=== PATIENT | male | born 1995 | race Caucasian/White ===

== ENCOUNTER 2021-09-09 09:38 | Outpatient (REF) | payer BC, SELFPAY ==
[2021-09-09 11:07] LABS: MANUAL DIFF FLAG NO
[2021-09-09 11:10] LABS: Basophils Absolute Auto 0.1 X10*3/uL (0.0-0.2); Basophils Percent Auto 1.3 % (0-2); Eosinophils Absolute Auto 0.1 X10*3/uL (0.0-0.4); Eosinophils Percent Auto 1.9 % (0-4); Hematocrit 44.2 % (42.0-52.0); Hemoglobin 15.4 g/dl (14.0-18.0); Imm Gran Abs Auto 0.01 X10*3/uL (0.00-0.03); Imm Gran Pct Auto 0.2 % (0.0-0.4); Lymphocytes Absolute Auto 2.4 X10*3/uL (1.2-4.9); Lymphocytes Percent Auto 46.4 % (20-40); Mean Corpuscular HGB Conc 34.8 g/dl (31.0-36.0); Mean Corpuscular Hemoglobin 29.1 pg (27.0-33.0); Mean Corpuscular Volume 83.6 fL (80.0-98.0); Mean Platelet Volume 10.9 fL (9.4-12.4); Monocytes Absolute Auto 0.4 X10*3/uL (0.1-1.2); Monocytes Percent Auto 7.7 % (2-11); Neutrophils Absolute Auto 2.2 x10*3/uL (2.0-8.3); Neutrophils Percent Auto 42.5 % (45-73); Platelet Count 271 X10*3/uL (160-400); Red Blood Count 5.29 X10*6/uL (4.60-5.80); Red Cell Distribution Width 11.9 % (11.0-16.0); White Blood Count 5.2 X10*3/uL (4.8-10.8)
[2021-09-09 11:26] LABS: Estimated Average Glucose 103 mg/dL; Hemoglobin A1c % 5.2 %
[2021-09-09 11:33] LABS: Alanine Aminotransferase 39 U/L (0-40); Albumin Level 4.6 g/dL (3.5-5.0); Alkaline Phosphatase 65 U/L (39-117); Anion Gap 12 (12-20); Aspartate Amino Transferase 39 U/L (5-37); Bilirubin Total 1.1 mg/dL (0.0-1.0); Blood Urea Nitrogen 15 mg/dL (9-16); Calcium 10.2 mg/dL (8.4-10.2); Carbon Dioxide 26 mmol/L (22-29); Chloride 106 mmol/L (96-108); Estimated Glomerular Filt Rate > 60; Glucose Random 96 mg/dL (60-115); Potassium 4.4 mmol/L (3.3-5.1); Sodium 140 mmol/L (135-145); Total Protein 7.6 g/dL (6.5-8.0)
[2021-09-09 11:55] LABS: Thyroid Stimulating Hormone 2.99 uIU/mL (0.32-4.0)
[2021-09-09 12:21] LABS: Cortisol Random 17.6 ug/dL
== END 2021-09-09 09:39 | disposition home or self-care (01) ==
LOC: HO.MANLDS 09:38
PROVIDERS: PCP Physician Assistant; Visit Provider Physician Assistant
DX: R42 Dizziness and giddiness (principal); I10 Essential (primary) hypertension
CPT/HCPCS: 36415; 80053; 82088; 82533; 83036; 84439; 84443; 85025

== ENCOUNTER 2025-03-01 09:52 | Outpatient (REF) | payer OTHER, SELFPAY ==
--- OUTSIDE RECORDS SUMMARY | 2025-03-01 10:07 | XMS_ITS | Continuity of Care Document ---
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 MEET 2 OUT OF 3 ELEMENTS: PROBLEMS, DATA OR RISK ELEMENT 1: PROBLEMS ADDRESSED 1 OR MORE CHRONIC ILLNESS WITH EXACERBATION OR 2 OR MORE STABLE CHRONIC ILLNESSES OR 1 UNDIAGNOSED NEW PROBLEM OR 1 ACUTE ILLNESS W/SYMPTOMS OR 1 ACUTE COMPLICATED INJURY ELEMENT 2: DATA MUST MEET 1 OF 3 CATEGORIES CATEGORY 1: REVIEW OF PRIOR EXTERNAL NOTES, REVIEW OF RESULTS, ORDERING OF EACH TEST, ASSESSMENT REQUIRING INDEPENDENT HISTORIAN OR CATEGORY 2: INDEPENDENT INTERPRETATION OF TESTS BY ANOTHER PHYSICIAN OR SPECIALIST OR CATEGORY 3: DISCUSSION OF MGT OR TEST INTERPRETATION W/EXTERNAL PHYSICIAN OR SPECIALIST ELEMENT 3: RISK RISK OF COMPLICATIONS AND/OR MORBIDITY OR MORTALITY OF PATIENT MANAGEMENT PROVIDER MUST THOROUGHLY DOCUMENT EACH ELEMENT THAT IS COVERED [email or web address] Not available 03/01/2025 09:39:43 Plan of Treatment Reminders Order Date Submit Date Provider Last Modified By Organization Details Last Modified Time Details Appointments FOLLOW UP 15 2024 09:15A M DR NUNEZ Not available Not available Not available Lab CMP, serum or plasma 2024 025 [facility], [address] [place] [address], [place], [address], 03/01/2025 09:49:37 CBC w/ auto diff 2024 025 [facility], [address] [place] [address], [place], [address], 03/01/2025 09:49:37 lipid panel, serum 2024 [facility], [address], [place], [address], 03/01/2025 09:49:37 Referral None recorded. Procedures None recorded. Surgeries None recorded. Imaging None recorded. Medication Orders diclofena c sodium 75 mg tablet,de layed release 2024 [id number], [address] [place] [address], [id number], 03/01/2025 09:50:50 Patient TargetsNo targets recorded. Patient InstructionsNo instructions recorded. Reason for Referral None Reported. Problems Name Problem SNOMED Code Status Onset Date Resolution Date Notes Provider Name and Address Organization Details Recorded Time Hypertensi ve disorder 16465188 Active 2021 Alcides Nunez DO [address] [place] [address], [phone], [facility] 2 11:48:08 Migraine 02235773 Active 2022 Alcides Nunez DO [address] [place] [address], [phone], [facility] 3 09:47:21 Acute sinusitis 55030849 Active 2023 LETY WAKEFIELD [address] [place] [address], [phone], [facility] 4 12:19:48 Seasonal affective disorder 066732838 Active 2023 Alcides Nunez DO [address] [place] [address], [phone], [facility] 4 09:16:21 Tendinitis of hip 057169058 Active 2024 Alcides Nunez DO [address] [place] [address], [phone], [facility] 5 09:49:43 Problem Notes None recorded. Medical Equipment None Reported. Allergies No known drug allergies Medications Name Sig Start Date Stop Date Status Note LastModified by Organization Details LastModified Time azithromyci n 250 mg tablet TAKE 2 TABLETS (500 MG) BY ORAL ROUTE ONCE DAILY FOR 1 DAY THEN 1 TABLET (250 MG) BY ORAL ROUTE ONCE DAILY FOR 4 DAYS 01/17 completed Not Available Not Available Not Available sumatriptan 50 mg tablet TAKE ONE TABLET WHEN EXPERIENC ING MIGRAINE; MAY REPEAT DOSE IN 1-2 HOURS 08/26 completed Not Available Not Available Not Available amlodipine 2.5 mg tablet TAKE 1 TABLET BY MOUTH EVERY DAY 07/22 completed Not Available Not Available Not Available amlodipine 5 mg tablet TAKE 1 TABLET BY MOUTH EVERY DAY active Not Available Not Available No t Available amitriptyli ne 25 mg tablet 08/26 completed Not Available Not Available Not Available rizatriptan 10 mg disintegrat ing tablet TAKE 1 TABLET BY MOUTH NEEDED FOR MIGRAINE. MAY REPEAT IN 2 HOURS IF NEEDED 01/17 completed Not Available Not Available Not Available diclofenac sodium 75 mg tablet,francheska yed release Take 1 tablet twice a day by oral route for 30 days. 2024 active Not Available Not Available Not Avai lable metoprolol succinate ER 25 mg tablet,exte nded release 24 hr TAKE 1 TABLET BY MOUTH EVERY DAY 01/27 completed Not Available Not Available Not Available methylpredn isolone 4 mg tablets in a dose pack FOLLOW PACKAGE DIRECTION S 12/09 completed Not Available Not Available Not Available sertraline 50 mg tablet TAKE 1 TABLET BY MOUTH EVERY DAY active Not Available Not Available No t Available Vitals Date Recorded Body height Body mass index (BMI) Body weight Oxygen saturation Oxygen saturation in Arterial blood by Pulse oximetry Heart rate Systolic And Diastolic Provider Name and Address Organization Details Last Updated DateTime 5 175.26 cm 35.2 kg/m2 125114. 5 g 96 % 96 % 83 /min 136/80 mm[Hg] [facility] 5 09:16:35 Social History Question Answer Notes LastModified by Organizat ion Details LastModified Time Tobacco Smoking Status Never Smoker Not Available [employer] 06/10/2020 03:36:24 What Was The Date Of Your Most Recent Tobacco Screening? 03/01/2025 [email or web address] Information not available 03/01/2025 Sex: Unknown Functional Status Question Answer Note LastModified by Organization D etails LastModified Time Do you or have you ever used any other forms of tobacco or nicotine? No Information not available 12/22/2022 Mental Status None recorded. Family History Nothing Reported. Medical History No medical history recorded. Past Encounters Encounter ID Performer Location Encounter Start Date Encounter Closed Date Diagnosis/Indication Diagnosis SNOMED-CT Code Diagnosis ICD10 Code Diagnosis Note [id number] Alcides Nunez DO [facility] [address],[facility] [place] [address] 03/01/2025 09:10:34 03/01/2025 09:51:14 Depression screening 868432935 Z13.31 SCREENING NEGATIVE Hypertensive disorder 38 257551 I10 again : bp is good no issuesno bad side effects now and feels good overall but systolic has crept up so we will increase the dose to 5 mg Tendinitis of hip 987636 006 M76.891 Health Concerns Section Related Observation LastModified by Organization Detai ls LastModified Time None Recorded Concern Status LastModified by Organization Details LastModified Time None Recorded Payers Encounter Date Sequence Insurance Name Policy Number Policy Faulkner Covered Member ID Faulkner Member ID Guarantor Name 03/01/2025 1 [facility] [employer] Jose Yeyo [id number] [facility] Notes Date Note Type Note Provider Name and Address Organization Details Recorded Time 5 text/htm l Care Management - HypertensionReported by PatientHPIFor self care, patient reportsnot under emotional stress. For severity, patient reportssymptoms are improvinganddoes not interfere with daily activities. For associated symptoms, patient reportsno dizziness,no lightheadedness,no chest pain,no shortness of breath,no palpitations,no edema,no calf muscle cramps,no blurred vision,no confusion,no headaches, andno fatigue.ROS as noted in the HPI here for rechk and doing wellstates has been Alcides Nunez DO [address] [place], [address], [facility] 03/01/2025 09:51:13
--- OUTSIDE RECORDS SUMMARY | 2025-03-01 10:07 | XMS_ITS | Clinical Summary ---
Author Organization [facility] Address [address] [place] [address] Phone Care Team Providers Care Natural Resource Technician Name Role Phone Alcides Wilkins DO Unavailable Alcides Wilkins DO Primary Care Provider [phone] Allergies No known active allergies Medications amitriptyline (ELAVIL) 25 MG tabletIndications: Intractable migraine without aura and with status migrainosus Take 1 tablet (25 mg total) by mouth nightly at bedtime. 30 tablet 5 09/18/19 21 Active Additional Information Patient not taking.Reported on 09/22/2021 metoprolol succinate (TOPROL-XL) 25 MG 24 hr tablet metoprolol succinate ER 25 mg tablet,extended release 24 hr TAKE 1 TABLET BY MOUTH EVERY DAY Active rizatriptan (MAXALT-SAND ANALYST) 10 MG disintegrating tabletIndications: Intractable migraine without aura and with status migrainosus TAKE 1 TABLET BY MOUTH NEEDED FOR MIGRAINE. MAY REPEAT IN 2 HOURS IF NEEDED 12 tablet 11 09/24/19 22 Active Active Problems Problem Noted Date Diagnosed Date Snoring 12/19/2020 Daytime sleepiness 12/19/2020 Social History Tobacco Use Types Packs/Day Years Used Date Smoking Tobacco: Never Smokeless Tobacco: Never Alcohol Use Standard Drinks/Week Comments Yes 0 (1 standard drink = 0.6 oz pur e alcohol) 2 drinks weekly Education Answer Date Recorded Are you interested in more education? Not on yasmany e 12/03/2022 Are you concerned about learning? Not on file 12/03/2022 No 12/03/2022 No 12/03/2022 Digital Access Answer Date Recorded No 12/31/2022 No 12/31/2022 No 12/31/2022 Reliable internet access at home? Not on file 12/31/2022 Device with a working camera? Not on file Sex and Gender Information Value Date Recorded Sex Assigned at Male 08/03/2020 12:43 PM EST Legal Sex Male 8:51 PM EDT Gender Identity Male 08/03/2020 12:43 PM EST Sexual Orientation Not on file Last Filed Vital Signs Vital Sign Reading Time Taken Comments Blood Pressure 118/80 09/22/2021 2:21 PM EST Pulse 77 09/22/2021 2:21 PM EST Temperature 37.1 C (98.8 F) 09/22/2021 2:21 PM EST Respiratory Rate 20 08/03/2020 3:45 PM EST Oxygen Saturation 98% 09/22/2021 2:21 PM EST Inhaled Oxygen Concentration - - Weight 106.9 kg (235 lb 9.6 oz) 09/22/2021 2:21 PM EST Height 175.3 cm (5' 9 ) 09/22/2021 2:21 PM EST Body Mass Index 34.79 09/22/2021 2:21 PM EST Plan of Treatment Health Maintenance Due Date Last Done Comments Adult Td,Tdap Booster 1996 DEPRESSION SCREENING 2008 HEPATITIS C SCREENING 2014 HIV ONE-TIME SCREENING (18-6 5 YEARS) 2014 COVID-19 VACCINE (2023-2 5 season) 2024 SMOKING STATUS SCREENING (On ce After 26 Yrs) Completed 09/22/2021 HEPATITIS A VACCINES Aged Out No long er eligible based on patient's age to complete this topic HIB VACCINES Aged Out No longer eligi ble based on patient's age to complete this topic MENINGOCOCCAL VACCINES (ACWY) Aged Out No longer eligible based on patient's age to complete this topic MENINGOCOCCAL VACCINES (B) Aged Out N o longer eligible based on patient's age to complete this topic PNEUMOCOCCAL VACCINES (0-49 years) Aged Out No longer eligible based on patient's age to complete this topic Medical Devices Not on file Insurance [facility] PPO EPO [facility] PPO EPO [facility] PPO EPO [facility] PPO EPO [facility] PPO EPO Member Subscriber Plan / Payer (Ef fective 2016-Present) Name:Jose Orona Relation to Subscriber:Child Name:MEJIA ORONA Date of :1899 (Home) Address: [address] [place] [address] Payer ID:[id number] (NAIC) Type:PPO Address: [facility] [id number] [place], [place] [facility] PPO EPO [facility] PPO EPO Care Teams Natural Resource Technician Relationship Specialty Start Date End Date Alcides Wilkins DO [email or web address] PCP - General Internal Medicine 06/17/20 Alcides Wilkins DO Primary Care Physician Internal Medicine 06/17/20 Additional Source Comments The information contained in this document represents components of the legal health record. It is not the complete legal health record.[facility]
== END 2025-03-01 09:53 | disposition home or self-care (01) ==
LOC: HO.MANLDS 09:52
PROVIDERS: Visit Provider Internal Medicine
DX: Z13.89 Encounter for screening for other disorder (principal)